=== PATIENT | female | born 1950 | race Caucasian/White ===

== ENCOUNTER 2016-08-23 08:04 | Day surgery (SDC) | payer BC ==
[~2016-08-23 08:04] MED LIST: ACETAMINOPHEN 325 MG TABLET PO PRN; ACETYLCHOLINE CHLORIDE 20 DROP KIT IO PRN; BUPIVACAINE HCL/PF 30 ML VIAL IJ PRN; CYCLOPENTOLATE HCL 20 DROP BTL LEFTEYE PRN; DEXTROSE 5%-0.5 NORMAL SALINE 1,000 ML IV PRN; EPINEPHrine 1 MG/ML AMPUL IO PRN; HYALURONATE SODIUM 0.4 ML DISP.SYRIN IO PRN; HYALURONATE SODIUM 0.85 ML DISP.SYRIN IO PRN; LIDOCAINE HCL/PF 200 MG/5 ML AMPUL TP PRN; LIDOCAINE HCL/PF 5 ML VIAL IO PRN; NORMAL SALINE 3 ML BOX IV PRN; TETRACAINE HCL 150 DROP BTL OP PRN
--- OUTSIDE RECORDS SUMMARY | 2016-08-23 08:17 | XMS REPORT | Summary of Care ---
:1950 Author Organization [facility] Address [facility] [place] [address] Care Team Providers Name Role Phone Francisco Frost Primary Care Physician Encounter Date(s): 07/12/16 - 07/12/16 [facility] [address] [place] [address] - [facility] Discharge Diagnosis: Sleep apnea Discharge Diagnosis: Hypertension Discharge Diagnosis: Cataract in diseases classified elsewhere Discharge Disposition: 01 Discharged to Home or Self Care Attending Physician: Francisco Frost MD Referring Physician: Francisco Frost MD Vital Signs Most recent to oldest [Reference Range]: 1 Peripheral Pulse Rate [60-100 bpm] 68 bpm (07/12/16 9:06 AM) Blood Pressure [90-130/60-90 mmHg] 120/70mmHg (07/12/16 9:06 AM) Mean Arterial Pressure, Cuff 87 mmHg (07/12/16 9:06 AM) Most recent to oldest [Reference Range]: 1 Height/Length Measured 149 cm (07/12/16 9:06 AM) Weight Dosing 65.4 kg (07/12/16 9:06 AM) Weight Measured 65.4 kg (07/12/16 9:06 AM) BSA Measured 1.6 m2 (07/12/16 9:06 AM) Body Mass Index Measured 29.46 kg/m2 (07/12/16 9:06 AM) Problem List Condition Effective Dates Status Health Status Informant GERD - Gastro-esophageal reflux Active disease(Confirmed) Hiatal hernia(Confirmed) Active Hypertension(Confirmed) Active Migraine(Confirmed) Active Osteoarthritis(Confirmed) Active Depression, major, recurrent, Active moderate(Confirmed) Stomach ulcer(Confirmed) Active Allergies, Adverse Reactions, Alerts Substance Reaction Severity Status Latex1 Family history of Mild Active 1patient reports siblings and daughter have latex allergy- Medications acyclovir 800 mg oral tablet 1 tab(s), Oral, 5x/Day, PRN as needed, # 150 tab(s), 0 Refill(s), Pharmacy: [facility] Start Date: 10/08/13 Stop Date: 01/03/14 Status: Completedacyclovir 800 mg oral tablet 1 tab(s), Oral, 5x/Day, PRN as needed, # 30 tab(s), 5 Refill(s), Start Date: 10/19 14:47:44 CDT, Pharmacy: [facility] 79 Start Date: 01/09/16 Status: Orderedacyclovir 800 mg oral tablet 1 tab(s), Oral, 5x/Day, PRN as needed, # 30 tab(s), 3 Refill(s), Start Date: 9:02:35 CDT, Pharmacy: [facility] Start Date: 09/26/14 Stop Date: 01/09/16 Status: Completedacyclovir 800 mg oral tablet 1 tab(s), Oral, 5x/Day, PRN as needed Start Date: 09/12/13 Stop Date: 10/08/13 Status: Discontinuedacyclovir 800 mg oral tablet 1 tab(s), Oral, 5x/Day, PRN as needed, # 30 tab(s), 3 Refill(s), Pharmacy: [facility] 79 Start Date: 01/03/14 Stop Date: 09/26/14 Status: Discontinuedamoxicillin 500 mg, Oral, ONETIME, 4 tabs before procedures, 0 Refill(s) Special Instructions: 4 tabs before procedures Start Date: 09/17/13 Stop Date: 09/19/13 Status: Discontinuedamoxicillin 500 mg oral capsule 2 cap(s), Oral, BID Start Date: 09/27/13 Stop Date: 10/08/13 Status: DiscontinuedCipro 500 mg oral tablet 1 tab(s), Oral, q12hr, # 20 tab(s), 0 Refill(s), other reason (Rx) Start Date: 09/19/13 Stop Date: 10/08/13 Status: DiscontinuedCipro 500 mg oral tablet 1 tab(s), Oral, q12hr, # 20 tab(s), 0 Refill(s), Pharmacy: [id number] Start Date: 09/19/13 Stop Date: 09/19/13 Status: Discontinuedclarithromycin 500 mg oral tablet 1 tab(s), Oral, BID Start Date: 09/27/13 Stop Date: 10/08/13 Status: DiscontinuedEchinacea 0 Refill(s), Start Date: 09/20/14 10:26:00 CDT Start Date: 09/20/14 Stop Date: 05/07/15 Status: DiscontinuedEffexor XR 75 mg oral capsule, extended release 1 cap(s), Oral, Daily, cancel Gabapentin, # 30 cap(s), 4 Refill(s), Start Date: 05/07/15 13:47:00 [employer], Pharmacy: [facility] Special Instructions: cancel Gabapentin Start Date: 05/07/15 Stop Date: 07/03/15 Status: Discontinuedgabapentin 300 mg oral capsule 1 cap(s), Oral, BID, # 60 cap(s), 4 Refill(s), Start Date: 05/07/15 13:45:00 [employer] , Pharmacy: [id number] Start Date: 05/07/15 Stop Date: 05/07/15 Status: DiscontinuedHYDROcodone-acetaminophen 5 mg-325 mg oral tablet 1-2 tab(s), Oral, q6hr, PRN for pain, [facility], # 30 tab(s), 0 Refill(s), Start Date: 04/24/14 13:45:19 [employer] Special Instructions: [employer] Start Date: 04/24/14 Stop Date: 07/25/14 Status: CompletedHYDROcodone-acetaminophen 5 mg-325 mg oral tablet 1-2 tab(s), Oral, q6hr, PRN for pain, [facility], # 30 tab(s), 0 Refill(s) Special Instructions: [employer] Start Date: 12/05/13 Stop Date: 01/08/14 Status: CompletedHYDROcodone-acetaminophen 5 mg-325 mg oral tablet 1-2 tab(s), Oral, q6hr, PRN for pain, # 30 tab(s), 0 Refill(s) Start Date: 10/08/13 Stop Date: 12/05/13 Status: DiscontinuedHYDROcodone-acetaminophen 5 mg-325 mg oral tablet 1-2 tab(s), Oral, q6hr, PRN for pain, [facility], # 30 tab(s), 0 Refill(s) Special Instructions: [facility] Start Date: 01/08/14 Stop Date: 03/04/14 Status: CompletedHYDROcodone-acetaminophen 5 mg-325 mg oral tablet 1-2 tab(s), Oral, q6hr, PRN for pain, # 30 tab(s), 0 Refill(s), Start Date: 03/20 14:53:13 CDT Start Date: 09/13/14 Stop Date: 10/04/14 Status: DiscontinuedHYDROcodone-acetaminophen 5 mg-325 mg oral tablet 1-2 tab(s), Oral, q6hr, PRN for pain Start Date: 09/12/13 Stop Date: 10/08/13 Status: DiscontinuedHYDROcodone-acetaminophen 5 mg-325 mg oral tablet 1-2 tab(s), Oral, q6hr, PRN for pain, [facility], # 30 tab(s), 0 Refill(s), Start Date: 04/24/14 11:19:10 [employer] Special Instructions: [facility] Start Date: 04/24/14 Stop Date: 04/24/14 Status: CompletedHYDROcodone-acetaminophen 5 mg-325 mg oral tablet 1-2 tab(s), Oral, q6hr, PRN for pain, [facility], # 30 tab(s), 0 Refill(s), Start Date: 03/04/14 16:27:55 CDT Special Instructions: [facility] Start Date: 03/04/14 Stop Date: 04/24/14 Status: CompletedHYDROcodone-acetaminophen 5 mg-325 mg oral tablet 1-2 tab(s), Oral, q6hr, PRN for pain, [facility], # 30 tab(s), 0 Refill(s), Start Date: 07/25/14 14:58:48 [employer] Special Instructions: [facility] Start Date: 07/25/14 Stop Date: 09/13/14 Status: Completedibuprofen 200 mg, Oral, q4hr interval, PRN pain moderate 4-7, 0 Refill(s) Start Date: 09/17/13 Stop Date: 09/19/13 Status: DiscontinuedNaprosyn 250 mg oral tablet 1 tab(s), Oral, BID, PRN for pain, with food, # 30 tab(s), 0 Refill(s), Start Date: 07/03/15 15:04:00 [employer], Pharmacy: [facility] 797 Special Instructions: with food Start Date: 07/03/15 Stop Date: 01/12/16 Status: Discontinuednaratriptan 2.5 mg oral tablet 1 tab(s), Oral, Daily, PRN as needed for migraine headache, may repeat dose once in 4 hours Special Instructions: may repeat dose once in 4 hours Start Date: 09/12/13 Stop Date: 09/17/13 Status: CompletedNeoprene knee sleeve Neoprene knee sleeve 1 EA, N/A, ONETIME, # 1 EA, 0 Refill(s), 07/03/15 15:04:00 [employer] Start Date: 07/03/15 Stop Date: 01/12/16 Status: DiscontinuedNorco 5 mg-325 mg oral tablet 1 tab(s), Oral, q6hr, PRN for pain, MUST LAST 30 DAYS, # 30 tab(s), 0 Refill(s) , Start Date: 02/12/16 13:05:28 CDT Special Instructions: MUST LAST 30 DAYS Start Date: 02/12/16 Stop Date: 03/18/16 Status: CompletedNorco 5 mg-325 mg oral tablet 1 tab(s), Oral, q6hr, PRN for pain, MUST LAST 30 DAYS, # 30 tab(s), 0 Refill(s) , Start Date: 06/18/15 15:16:11 [employer] Special Instructions: MUST LAST 30 DAYS Start Date: 06/18/15 Stop Date: 08/06/15 Status: CompletedNorco 5 mg-325 mg oral tablet 1 tab(s), Oral, q6hr, PRN for pain, MUST LAST 30 DAYS, # 30 tab(s), 0 Refill(s) , Start Date: 04/23/16 15:25:57 [employer] Special Instructions: MUST LAST 30 DAYS Start Date: 04/23/16 Stop Date: 06/16/16 Status: CompletedNorco 5 mg-325 mg oral tablet 1 tab(s), Oral, q6hr, PRN for pain, MUST LAST 30 DAYS, # 30 tab(s), 0 Refill(s) , Start Date: 12/26/15 11:58:01 CDT Special Instructions: MUST LAST 30 DAYS Start Date: 12/26/15 Stop Date: 02/12/16 Status: CompletedNorco 5 mg-325 mg oral tablet 1 tab(s), Oral, q6hr, PRN for pain, # 30 tab(s), 0 Refill(s), Start Date: 16:38:33 CDT, Pharmacy: [facility] Start Date: 02/03/15 Stop Date: 02/20/15 Status: CompletedNorco 5 mg-325 mg oral tablet 1 tab(s), Oral, q6hr, PRN for pain, Fill on or after 07/16/16 MUST LAST 30 DAYS , # 30 tab(s), 0 Refill(s), Start Date: 07/12/16 9:19:31 [employer] Special Instructions: Fill on or after 07/16/16 MUST LAST 30 DAYS Start Date: 07/12/16 Status: OrderedNorco 5 mg-325 mg oral tablet 1 tab(s), Oral, q6hr, PRN for pain, MUST LAST 30 DAYS, # 30 tab(s), 0 Refill(s) , Start Date: 08/06/15 11:49:47 [employer] Special Instructions: MUST LAST 30 DAYS Start Date: 08/06/15 Stop Date: 10/24/15 Status: CompletedNorco 5 mg-325 mg oral tablet 1 tab(s), Oral, q6hr, PRN for pain, MUST LAST 30 DAYS, # 30 tab(s), 0 Refill(s) , Start Date: 08/06/15 11:48:13 [employer] Special Instructions: MUST LAST 30 DAYS Start Date: 08/06/15 Stop Date: 08/06/15 Status: CompletedNorco 5 mg-325 mg oral tablet 1 tab(s), Oral, q6hr, PRN for pain, MUST LAST 30 DAYS, # 30 tab(s), 0 Refill(s) , Start Date: 02/20/15 15:33:40 CDT Special Instructions: MUST LAST 30 DAYS Start Date: 02/20/15 Stop Date: 04/28/15 Status: CompletedNorco 5 mg-325 mg oral tablet 1 tab(s), Oral, q6hr, PRN for pain, MUST LAST 30 DAYS, # 30 tab(s), 0 Refill(s) , Start Date: 03/18/16 14:39:23 CDT Special Instructions: MUST LAST 30 DAYS Start Date: 03/18/16 Stop Date: 04/23/16 Status: CompletedNorco 5 mg-325 mg oral tablet 1 tab(s), Oral, q6hr, PRN for pain, # 40 tab(s), 0 Refill(s), Start Date: 12:07:00 CDT, Pharmacy: [facility] Start Date: 01/03/15 Stop Date: 02/03/15 Status: CompletedNorco 5 mg-325 mg oral tablet 1 tab(s), Oral, q6hr, PRN for pain, MUST LAST 30 DAYS, # 30 tab(s), 0 Refill(s) , Start Date: 04/28/15 11:49:52 [employer] Special Instructions: MUST LAST 30 DAYS Start Date: 04/28/15 Stop Date: 05/07/15 Status: DiscontinuedNorco 5 mg-325 mg oral tablet 1 tab(s), Oral, q6hr, PRN for pain, MUST LAST 30 DAYS, # 30 tab(s), 0 Refill(s) , Start Date: 10/24/15 15:20:47 CDT Special Instructions: MUST LAST 30 DAYS Start Date: 10/24/15 Stop Date: 12/26/15 Status: CompletedNorco 5 mg-325 mg oral tablet 1 tab(s), Oral, q6hr, PRN for pain, MUST LAST 30 DAYS, # 30 tab(s), 0 Refill(s) , Start Date: 06/16/16 13:03:40 [employer] Special Instructions: MUST LAST 30 DAYS Start Date: 06/16/16 Stop Date: 07/12/16 Status: CompletedOxyCONTIN 10 mg oral tablet, extended release 1 tab(s), Oral, q12hr, # 14 tab(s), 0 Refill(s), Start Date: 10/04/14 6:54:00 CDT Start Date: 10/04/14 Stop Date: 10/22/14 Status: Completedpantoprazole 40 mg oral delayed release tablet 1 tab(s), Oral, BID, # 60 tab(s), 3 Refill(s), Start Date: 05/07/15 13:41:12 [employer] , Pharmacy: [place] [id number] Start Date: 05/07/15 Stop Date: 08/18/15 Status: Completedpantoprazole 40 mg oral delayed release tablet 1 tab(s), Oral, BID, # 60 tab(s), 6 Refill(s), Start Date: 07/26/14 14:02:41 [employer] , other reason (Rx) Start Date: 07/26/14 Stop Date: 02/17/15 Status: Completedpantoprazole 40 mg oral delayed release tablet 1 tab(s), Oral, BID, # 60 tab(s), 2 Refill(s), Start Date: 02/17/15 16:48:35 CDT , Pharmacy: [place] [id number] Start Date: 02/17/15 Stop Date: 05/07/15 Status: Discontinuedpantoprazole 40 mg oral delayed release tablet 1 tab(s), Oral, BID, # 60 tab(s), 2 Refill(s), Pharmacy: [place] [id number] Start Date: 01/22/14 Stop Date: 07/26/14 Status: Discontinuedpantoprazole 40 mg oral delayed release tablet 1 tab(s), Oral, BID, # 60 tab(s), 5 Refill(s), Start Date: 08/18/15 14:42:14 CDT , Pharmacy: [place] [id number] Start Date: 08/18/15 Stop Date: 01/12/16 Status: Discontinuedpantoprazole 40 mg oral delayed release tablet 1 tab(s), Oral, BID, # 28 tab(s), 0 Refill(s), Start Date: 06/24/14 12:20:16 [employer] , Pharmacy: [place] [id number] Start Date: 06/24/14 Stop Date: 07/26/14 Status: Completedpantoprazole 40 mg oral delayed release tablet 1 tab(s), Oral, BID, # 60 tab(s), 0 Refill(s), Start Date: 05/24/14 10:38:00 [employer] , Pharmacy: [facility] Start Date: 05/24/14 Stop Date: 06/24/14 Status: Completedpantoprazole 40 mg oral enteric coated tablet 1 tab(s), Oral, BID, # 30 tab(s), 6 Refill(s), Pharmacy: [facility] Start Date: 09/19/13 Stop Date: 12/22/13 Status: Completedpantoprazole 40 mg oral enteric coated tablet 1 tab(s), Oral, BID, # 14 tab(s), 0 Refill(s), Pharmacy: [id number] Start Date: 12/22/13 Stop Date: 07/26/14 Status: Discontinuedpantoprazole 40 mg oral enteric coated tablet 1 tab(s), Oral, Daily Start Date: 09/12/13 Stop Date: 09/19/13 Status: Discontinuedpantoprazole 40 mg oral granule, enteric coated 1 tab, Oral, BID, # 60 tab(s), 6 Refill(s), Start Date: 05/07/14 15:52:00 [employer], Pharmacy: [facility] Start Date: 05/07/14 Stop Date: 07/26/14 Status: DiscontinuedPercocet 5/325 oral tablet 1 tab(s), Oral, q4hr, # 40 tab(s), 0 Refill(s), Start Date: 11/07/14 10:57:57 CDT, other reason (Rx) Start Date: 11/07/14 Stop Date: 11/15/14 Status: CompletedPercocet 5/325 oral tablet 2 tab(s), Oral, q4hr, PRN pain moderate 4-7, NTE 8 tabs/day, # 60 tab(s), 0 Refill(s), Start Date: 10/04/14 6:54:00 CDT Special Instructions: NTE 8 tabs/day Start Date: 10/04/14 Stop Date: 01/03/15 Status: CompletedPercocet 5/325 oral tablet See Instructions, 1-2 tabs every 4-6 hours prn pain *pt instructed to pick rx in the office., # 60 tab(s), 0 Refill(s), Start Date: 12/11/14 14:12:00 CDT, other reason (Rx) Special Instructions: 1-2 tabs every 4-6 hours prn pain *pt instructed to pick rx in the office. Start Date: 12/11/14 Stop Date: 01/03/15 Status: CompletedPercocet 5/325 oral tablet See Instructions, 1-2 tabs every 4-6 hours prn pain *rx given in the office. , # 40 tab(s), 0 Refill(s), Start Date: 11/15/14 13:25:00 CDT Special Instructions: 1-2 tabs every 4-6 hours prn pain *rx given in the office. Start Date: 11/15/14 Stop Date: 05/07/15 Status: CompletedPercocet 5/325 oral tablet 1 tab(s), Oral, q4hr, # 40 tab(s), 0 Refill(s), Start Date: 10/22/14 10:48:00 CDT, Pharmacy: [facility] Start Date: 10/22/14 Stop Date: 11/07/14 Status: CompletedPriLOSEC 40 mg oral delayed release capsule 1 cap(s), Oral, DailyAC, before a meal, 0 Refill(s) Special Instructions: before a meal Start Date: 09/13/13 Stop Date: 09/17/13 Status: CompletedProAir HFA 90 mcg/inh inhalation aerosol with adapter 2 puff(s), Inhale, QID, PRN for wheezing Start Date: 09/12/13 Stop Date: 09/17/13 Status: CompletedProAir HFA 90 mcg/inh inhalation aerosol with adapter 2 puff(s), Inhale, QID, PRN for wheezing, # 1 EA, 0 Refill(s), Pharmacy: [facility] Start Date: 09/19/13 Stop Date: 07/12/16 Status: DiscontinuedProAir HFA 90 mcg/inh inhalation aerosol with adapter 2 puff(s), Inhale, QID, PRN for wheezing, 0 Refill(s) Start Date: 09/13/13 Stop Date: 09/19/13 Status: DiscontinuedtraMADol 50 mg oral tablet 1 tab(s), Oral, q6hr interval, PRN for pain Start Date: 09/12/13 Stop Date: 10/08/13 Status: DiscontinuedtraMADol 50 mg oral tablet 1 tab(s), Oral, q6hr interval, PRN for pain, # 120 tab(s), 0 Refill(s), Pharmacy : [facility] 79 Start Date: 10/08/13 Stop Date: 10/01/14 Status: Completedverapamil 40 mg oral tablet 1 tab(s), Oral, BID Start Date: 09/12/13 Stop Date: 10/27/13 Status: Discontinuedverapamil 40 mg oral tablet 1 tab(s), Oral, BID, # 60 tab(s), 6 Refill(s), Start Date: 05/07/15 13:40:00 [employer] , Pharmacy: [place] [id number] Start Date: 05/07/15 Stop Date: 08/18/15 Status: Completedverapamil 40 mg oral tablet 1 tab(s), Oral, BID, # 60 tab(s), 6 Refill(s), Start Date: 07/12/16 9:18:43 [employer] , Pharmacy: [place] [id number] Start Date: 07/12/16 Status: Orderedverapamil 40 mg oral tablet 1 tab(s), Oral, BID, due for appt, # 180 tab(s), 3 Refill(s), Pharmacy: [place] [id number] Special Instructions: due for appt Start Date: 12/05/13 Stop Date: 12/22/13 Status: Completedverapamil 40 mg oral tablet 1 tab(s), Oral, BID, due for appt, # 14 tab(s), 0 Refill(s), Pharmacy: [facility] Special Instructions: due for appt Start Date: 12/22/13 Stop Date: 01/03/14 Status: Completedverapamil 40 mg oral tablet 1 tab(s), Oral, BID, # 60 tab(s), 5 Refill(s), Start Date: 08/18/15 14:42:24 CDT , Pharmacy: [place] [id number] Start Date: 08/18/15 Stop Date: 01/12/16 Status: Discontinuedverapamil 40 mg oral tablet 1 tab(s), Oral, BID, due for appt, # 14 tab(s), 0 Refill(s) Special Instructions: due for appt Start Date: 12/22/13 Stop Date: 12/22/13 Status: Completedverapamil 40 mg oral tablet 1 tab(s), Oral, BID, # 60 tab(s), 5 Refill(s), Start Date: 01/30/14 14:37:43 CDT , Pharmacy: [place] [id number] Start Date: 01/30/14 Stop Date: 08/08/14 Status: Completedverapamil 40 mg oral tablet 1 tab(s), Oral, BID, # 60 tab(s), 0 Refill(s), Pharmacy: [place] [id number] Start Date: 10/27/13 Stop Date: 11/26/13 Status: Completedverapamil 40 mg oral tablet 1 tab(s), Oral, BID, # 60 tab(s), 5 Refill(s), Pharmacy: [place] [id number] Start Date: 01/03/14 Stop Date: 01/30/14 Status: Completedverapamil 40 mg oral tablet 1 tab(s), Oral, BID, due for appt, # 60 tab(s), 5 Refill(s), Pharmacy: [place] [id number] Special Instructions: due for appt Start Date: 01/03/14 Stop Date: 01/03/14 Status: Completedverapamil 40 mg oral tablet 1 tab(s), Oral, BID, # 60 tab(s), 5 Refill(s), Start Date: 08/08/14 14:37:24 [employer] , Pharmacy: [place] [id number] Start Date: 08/08/14 Stop Date: 10/02/14 Status: Discontinuedverapamil 40 mg oral tablet 1 tab(s), Oral, BID, # 60 tab(s), 5 Refill(s), Start Date: 08/18/15 13:49:37 CDT , Pharmacy: [place] [id number] Start Date: 08/18/15 Stop Date: 08/18/15 Status: Completedverapamil 40 mg oral tablet 1 tab(s), Oral, BID, # 60 tab(s), 5 Refill(s), Start Date: 01/12/16 9:19:47 CDT , Pharmacy: [place] [id number] Start Date: 01/12/16 Stop Date: 07/12/16 Status: Discontinuedverapamil 40 mg oral tablet 1 tab(s), Oral, BID, due for appt, # 60 tab(s), 0 Refill(s), Pharmacy: [facility] Special Instructions: due for appt Start Date: 11/26/13 Stop Date: 12/05/13 Status: DiscontinuedVitamin C 0 Refill(s), Start Date: 09/20/14 10:26:00 CDT Start Date: 09/20/14 Status: OrderedVitamin D3 200 intl units oral tablet 0 Refill(s), Start Date: 09/20/14 10:26:00 CDT Start Date: 09/20/14 Status: OrderedZofran 4 mg oral tablet 1 tab(s), Oral, q6hr, PRN nausea, # 30 tab(s), 0 Refill(s), Start Date: 6:57:00 CDT Start Date: 10/04/14 Stop Date: 07/03/15 Status: DiscontinuedZofran 4 mg oral tablet 1 tab(s), Oral, TID, PRN nausea/vomiting, # 12 tab(s), 0 Refill(s), Start Date: 07/03/15 15:04:00 [employer], Pharmacy: [facility] Start Date: 07/03/15 Stop Date: 01/12/16 Status: Completed Results Patient Viewable Results Most recent to oldest [Reference Range]: 1 Sodium Lvl [136-145 mmol/L] 140 mmol/L (07/12/16 9:25 AM) Potassium Lvl [3.5-5.1 mmol/L] 4.4 mmol/L (07/12/16 9:25 AM) Chloride Lvl [98-107 mmol/L] 103 mmol/L (07/12/16 9:25 AM) Bicarbonate Lvl [21-32 mmol/L] 29 mmol/L (07/12/16 9:25 AM) Anion Gap [12-19] 12 (07/12/16 9:25 AM) Glucose Lvl [74-106 mg/dL] 83 mg/dL (07/12/16 9:25 AM) BUN [7-18 mg/dL] 12 mg/dL (07/12/16 9:25 AM) Creatinine Lvl [0.55-1.02 mg/dL] 0.68 mg/dL (07/12/16 9:25 AM) BUN/Creat Ratio 18 *NA* (07/12/16 9:25 AM) eGFR AA [>=60] >60 (07/12/16 9:25 AM) eGFR SUSANA [>=60] >60 (07/12/16 9:25 AM) Calcium Lvl [8.5-10.1 mg/dL] 9.2 mg/dL (07/12/16 9:25 AM) Total Protein [6.4-8.2 g/dL] 6.8 g/dL (07/12/16 9:25 AM) Albumin Lvl [3.4-5.0 g/dL] 3.7 g/dL (07/12/16 9:25 AM) Globulin 3 g/dL *NA* (07/12/16 9:25 AM) A/G Ratio [1.0-2.0] 1.2 (07/12/16 9:25 AM) Bilirubin Total [0.2-1.0 mg/dL] 0.3 mg/dL (07/12/16 9:25 AM) Alkaline Phosphatase [46-116 unit/L] 59 unit/L (07/12/16 9:25 AM) AST [15-37 unit/L] 21 unit/L (07/12/16 9:25 AM) ALT [14-59 unit/L] 24 unit/L (07/12/16 9:25 AM) UA Color Yellow *NA* (07/12/16 9:25 AM) Urine Clarity Clear *NA* (07/12/16 9:25 AM) Specific Sharon [1.001-1.020] <=1.005 *NA* (07/12/16 9:25 AM) Urine pH [5.0-7.0] 6.0 (07/12/16 9:25 AM) Ketones [Negative] Negative (07/12/16 9:25 AM) Bilirubin [Negative] Negative (07/12/16 9:25 AM) Urine Protein [Negative] Negative (07/12/16 9:25 AM) Glucose [Negative] Negative (07/12/16 9:25 AM) Urine HGB [Negative] Negative (07/12/16 9:25 AM) Urobilinogen [0.2-1.0] 0.2 (07/12/16 9:25 AM) Nitrite [Negative] Negative (07/12/16 9:25 AM) Leuk Esterase [Negative] Negative (07/12/16 9:25 AM) Immunizations Vaccine Date Refusal Reason tetanus/diphtheria/pertussis, acel(Tdap) 06/06/10 tetanus/diphtheria/pertussis, acel(Tdap) 10/01/09 Procedures Procedure Date Related Diagnosis Body Site Arthroplasty Shoulder Total (Left)1 10/01/14 Esophageal Dilatation2 09/19/13 Pyloroplasty 01/31/13 Repair of paraesophageal diaphragmatic hernia3 01/31/13 Esophagogastroduodenoscopy 01/30/13 Esophagogastroduodenoscopy 12/22/12 Bilateral tubal ligation 1975 section 1974 section 1973 Repair of paraesophageal diaphragmatic hernia 1auto-populated from documented surgical [id number] from documented surgical [id number] Social History No data available for this section Assessment and Plan No data available for this section
--- OUTSIDE RECORDS SUMMARY | 2016-08-23 08:18 | XMS REPORT | Summary of Care ---
:1950 Author Organization [facility] Address [address] [place] [address]- Care Team Providers Name Role Phone Margot Francisco Primary Care Physician Encounter Date(s): 07/15/16 - 07/15/16 [facility] [address] [place] [address]- [facility] Discharge Disposition: 01 Discharged to Home or Self Care Attending Physician: Charli Andrade MD Admitting Physician: Charli Andrade MD Vital Signs Most recent to oldest [Reference 1 2 3 Range]: Temperature Temporal Artery [36-38 36.5 DegC 36.0 DegC DegC] (07/15/16 9:13 AM) (07/15/16 8:52 AM) Temperature Temporal Artery 36.0 DegC [36.0-38.0 DegC] (07/15/16 7:26 AM) Heart Rate Monitored [60-100 bpm] 58 bpm 63 bpm 79 bpm *LOW* (07/15/16 8:52 AM) (07/15/16 7:26 AM) (07/15/16 9:13 AM) Respiratory Rate [12-20 br/min] 16 br/min 16 br/min 18 br/min (07/15/16 9:13 AM) (07/15/16 8:52 AM) (07/15/16 7:26 AM) SpO2 100 % 99 % 100 % (07/15/16 9:13 AM) (07/15/16 8:52 AM) (07/15/16 7:26 AM) SpO2 Location Left hand (07/15/16 9:13 AM) Blood Pressure [90-130/60-90 mmHg] 138/65mmHg 94/56mmHg 118/59mmHg *HI* (07/15/16 8:52 AM) (07/15/16 7:26 AM) (07/15/16 9:13 AM) Most recent to oldest [Reference Range]: 1 2 3 Height/Length Measured 149 cm (07/15/16 7:26 AM) Height/Length Estimated 149.86 cm 149.86 cm (07/15/16 7:26 AM) (07/13/16 10:41 AM) Weight Estimated 64.5 kg 63.5 kg (07/15/16 7:26 AM) (07/13/16 10:41 AM) Weight Dosing 64.5 kg (07/15/16 7:26 AM) Weight Measured 64.5 kg (07/15/16 7:26 AM) BSA Measured 1.59 m2 (07/15/16 7:26 AM) BSA Estimated 1.64 m2 (07/15/16 7:26 AM) Body Mass Index Measured 29.05 kg/m2 (07/15/16 7:26 AM) Body Mass Index Estimated 28.72 kg/m2 (07/15/16 7:26 AM) Problem List Condition Effective Dates Status [...] needed, # 150 tab(s), 0 Refill(s), Pharmacy: [facility] Start Date: 10/08/13 Stop Date: 01/03/14 Status: Completedacyclovir 800 mg oral tablet 1 tab(s), Oral, 5x/Day, PRN as needed, # 30 tab(s), 5 Refill(s), Start Date: 10/19 14:47:44 CDT, Pharmacy: [facility] Start Date: 01/09/16 Status: Orderedacyclovir 800 mg oral tablet 1 tab(s), Oral, 5x/Day, PRN as needed, # 30 tab(s), 3 Refill(s), Start Date: 9:02:35 CDT, Pharmacy: [facility] Start Date: 09/26/14 Stop Date: 01/09/16 Status: Completedacyclovir 800 mg oral tablet 1 tab(s), Oral, 5x/Day, PRN as needed Start Date: 09/12/13 Stop Date: 10/08/13 Status: Discontinuedacyclovir 800 mg oral tablet 1 tab(s), Oral, 5x/Day, PRN as needed, # 30 tab(s), 3 Refill(s), Pharmacy: [facility] Start Date: 01/03/14 Stop Date: 09/26/14 Status: Discontinuedamoxicillin 500 mg, Oral, ONETIME, 4 tabs before procedures, 0 Refill(s) Special Instructions: 4 tabs before procedures Start Date: 09/17/13 Stop Date: 09/19/13 Status: Discontinuedamoxicillin 500 mg oral capsule 2 cap(s), Oral, BID Start Date: 09/27/13 Stop Date: 10/08/13 Status: Discontinuedaspirin 81 mg, Oral, Daily, 0 Refill(s), Start Date: 07/13/16 10:44:00 MANAGEMENT SCIENTIST Start Date: 07/13/16 Status: OrderedCipro 500 mg oral tablet 1 tab(s), Oral, q12hr, # 20 tab(s), 0 Refill(s), other reason (Rx) Start Date: 09/19/13 Stop Date: 10/08/13 Status: DiscontinuedCipro 500 mg oral tablet 1 tab(s), Oral, q12hr, # 20 tab(s), 0 Refill(s), Pharmacy: [facility] Start Date: 09/19/13 Stop [...] cap(s), 4 Refill(s), Start Date: 05/07/15 13:47:00 MANAGEMENT SCIENTIST, Pharmacy: [facility] Special Instructions: cancel Gabapentin Start Date: 05/07/15 Stop Date: 07/03/15 Status: Discontinuedgabapentin 300 mg oral capsule 1 cap(s), Oral, BID, # 60 cap(s), 4 Refill(s), Start Date: 05/07/15 13:45:00 MANAGEMENT SCIENTIST , Pharmacy: [id number] Start Date: 05/07/15 Stop Date: 05/07/15 Status: DiscontinuedHYDROcodone-acetaminophen 5 mg-325 mg oral tablet 1-2 tab(s), Oral, q6hr, PRN for pain, [facility], # 30 tab(s), 0 Refill(s), Start Date: 04/24/14 13:45:19 MANAGEMENT SCIENTIST Special Instructions: Jason Start Date: 04/24/14 Stop Date: 07/25/14 Status: CompletedHYDROcodone-acetaminophen 5 mg-325 mg oral tablet 1-2 tab(s), Oral, q6hr, PRN for pain, [facility], # 30 tab(s), 0 Refill(s) Special Instructions: ArpanPheedo Start Date: 12/05/13 Stop Date: 01/08/14 Status: CompletedHYDROcodone-acetaminophen 5 mg-325 mg oral tablet 1-2 tab(s), Oral, q6hr, PRN for pain, # 30 tab(s), 0 Refill(s) Start Date: 10/08/13 Stop Date: 12/05/13 Status: DiscontinuedHYDROcodone-acetaminophen 5 mg-325 mg oral tablet 1-2 tab(s), Oral, q6hr, PRN for pain, [facility], # 30 tab(s), 0 Refill(s) Special Instructions: PaulToldo Start Date: 01/08/14 Stop Date: 03/04/14 Status: [...] tab(s), 0 Refill(s), Start Date: 04/24/14 11:19:10 MANAGEMENT SCIENTIST Special Instructions: [facility] Start Date: 04/24/14 Stop Date: 04/24/14 Status: CompletedHYDROcodone-acetaminophen 5 mg-325 mg oral tablet 1-2 tab(s), Oral, q6hr, PRN for pain, [facility], # 30 tab(s), 0 Refill(s), Start Date: 03/04/14 16:27:55 CDT Special Instructions: Paul-shawn Start Date: 03/04/14 Stop Date: 04/24/14 Status: CompletedHYDROcodone-acetaminophen 5 mg-325 mg oral tablet 1-2 tab(s), Oral, q6hr, PRN for pain, [facility], # 30 tab(s), 0 Refill(s), Start Date: 07/25/14 14:58:48 MANAGEMENT SCIENTIST Special Instructions: Paul-shawn Start Date: 07/25/14 Stop Date: 09/13/14 Status: Completedibuprofen 200 mg, Oral, q4hr interval, PRN pain moderate 4-7, 0 Refill(s) Start Date: 09/17/13 Stop Date: 09/19/13 Status: DiscontinuedNaprosyn 250 mg oral tablet 1 tab(s), Oral, BID, PRN for pain, with food, # 30 tab(s), 0 Refill(s), Start Date: 07/03/15 15:04:00 MANAGEMENT SCIENTIST, Pharmacy: [facility] Special Instructions: with food Start Date: [...] # 1 EA, 0 Refill(s), 07/03/15 15:04:00 MANAGEMENT SCIENTIST Start Date: 07/03/15 Stop Date: 01/12/16 Status: [...] 0 Refill(s) , Start Date: 06/18/15 15:16:11 MANAGEMENT SCIENTIST Special Instructions: MUST LAST 30 DAYS Start Date: 06/18/15 Stop Date: 08/06/15 Status: CompletedNorco 5 mg-325 mg oral tablet 1 tab(s), Oral, q6hr, PRN for pain, MUST LAST 30 DAYS, # 30 tab(s), 0 Refill(s) , Start Date: 04/23/16 15:25:57 MANAGEMENT SCIENTIST Special Instructions: MUST LAST 30 DAYS Start [...] 0 Refill(s), Start Date: 16:38:33 CDT, Pharmacy: [facility] Start Date: 02/03/15 Stop Date: 02/20/15 Status: CompletedNorco 5 mg-325 mg oral tablet 1 tab(s), Oral, q6hr, PRN for pain, Fill on or after 07/16/16 MUST LAST 30 DAYS , # 30 tab(s), 0 Refill(s), Start Date: 07/12/16 9:19:31 MANAGEMENT SCIENTIST Special Instructions: Fill on or after 07/16/16 MUST LAST 30 DAYS Start Date: 07/12/16 Status: OrderedNorco 5 mg-325 mg oral tablet 1 tab(s), Oral, q6hr, PRN for pain, MUST LAST 30 DAYS, # 30 tab(s), 0 Refill(s) , Start Date: 08/06/15 11:49:47 MANAGEMENT SCIENTIST Special Instructions: MUST LAST 30 DAYS Start Date: 08/06/15 Stop Date: 10/24/15 Status: CompletedNorco 5 mg-325 mg oral tablet 1 tab(s), Oral, q6hr, PRN for pain, MUST LAST 30 DAYS, # 30 tab(s), 0 Refill(s) , Start Date: 08/06/15 11:48:13 MANAGEMENT SCIENTIST Special Instructions: MUST LAST 30 DAYS Start [...] 0 Refill(s), Start Date: 12:07:00 CDT, Pharmacy: [facility] Start Date: 01/03/15 Stop Date: 02/03/15 Status: CompletedNorco 5 mg-325 mg oral tablet 1 tab(s), Oral, q6hr, PRN for pain, MUST LAST 30 DAYS, # 30 tab(s), 0 Refill(s) , Start Date: 04/28/15 11:49:52 MANAGEMENT SCIENTIST Special Instructions: MUST LAST 30 DAYS Start [...] 0 Refill(s) , Start Date: 06/16/16 13:03:40 MANAGEMENT SCIENTIST Special Instructions: MUST LAST 30 DAYS Start Date: 06/16/16 Stop Date: 07/12/16 Status: CompletedOxyCONTIN 10 mg oral tablet, extended release 1 tab(s), Oral, q12hr, # 14 tab(s), 0 Refill(s), Start Date: 10/04/14 6:54:00 CDT Start Date: 10/04/14 Stop Date: 10/22/14 Status: Completedpantoprazole 40 mg oral delayed release tablet 1 tab(s), Oral, BID, # 60 tab(s), 3 Refill(s), Start Date: 05/07/15 13:41:12 MANAGEMENT SCIENTIST , Pharmacy: [facility] Start Date: 05/07/15 Stop Date: 08/18/15 Status: Completedpantoprazole 40 mg oral delayed release tablet 1 tab(s), Oral, BID, # 60 tab(s), 6 Refill(s), Start Date: 07/26/14 14:02:41 MANAGEMENT SCIENTIST , other reason (Rx) Start Date: 07/26/14 Stop Date: 02/17/15 Status: Completedpantoprazole 40 mg oral delayed release tablet 1 tab(s), Oral, BID, # 60 tab(s), 2 Refill(s), Start Date: 02/17/15 16:48:35 CDT , Pharmacy: [place] [facility] [id number] Start Date: 02/17/15 Stop Date: 05/07/15 Status: Discontinuedpantoprazole 40 mg oral delayed release tablet 1 tab(s), Oral, BID, # 60 tab(s), 2 Refill(s), Pharmacy: [place] [id number] Start Date: 01/22/14 Stop Date: 07/26/14 Status: Discontinuedpantoprazole 40 mg oral delayed release tablet 1 tab(s), Oral, BID, # 60 tab(s), 5 Refill(s), Start Date: 08/18/15 14:42:14 CDT , Pharmacy: [place] [id number] Start Date: 08/18/15 Stop Date: 01/12/16 Status: Discontinuedpantoprazole 40 mg oral delayed release tablet 1 tab(s), Oral, BID, # 28 tab(s), 0 Refill(s), Start Date: 06/24/14 12:20:16 MANAGEMENT SCIENTIST , Pharmacy: [place] [id number] Start Date: 06/24/14 Stop Date: 07/26/14 Status: Completedpantoprazole 40 mg oral delayed release tablet 1 tab(s), Oral, BID, # 60 tab(s), 0 Refill(s), Start Date: 05/24/14 10:38:00 MANAGEMENT SCIENTIST , Pharmacy: [place] [id number] Start Date: 05/24/14 Stop Date: 06/24/14 Status: Completedpantoprazole 40 mg oral enteric coated tablet 1 tab(s), Oral, BID, # 30 tab(s), 6 Refill(s), Pharmacy: [place] [id number] Start Date: 09/19/13 Stop Date: 12/22/13 Status: Completedpantoprazole 40 mg oral enteric coated tablet 1 tab(s), Oral, BID, # 14 tab(s), 0 Refill(s), Pharmacy: [id number] Start Date: 12/22/13 Stop Date: 07/26/14 Status: Discontinuedpantoprazole 40 mg oral enteric coated tablet 1 tab(s), Oral, Daily Start Date: 09/12/13 Stop Date: 09/19/13 Status: Discontinuedpantoprazole 40 mg oral granule, enteric coated 1 tab, Oral, BID, # 60 tab(s), 6 Refill(s), Start Date: 05/07/14 15:52:00 MANAGEMENT SCIENTIST, Pharmacy: [facility] Start Date: 05/07/14 Stop [...] Refill(s), Start Date: 10/22/14 10:48:00 CDT, Pharmacy: [facility] Start Date: 10/22/14 Stop Date: [...] wheezing, # 1 EA, 0 Refill(s), Pharmacy: [facility] Start Date: 09/19/13 Stop Date: 07/12/16 Status: DiscontinuedProAir HFA 90 mcg/inh inhalation aerosol with adapter 2 puff(s), Inhale, QID, PRN for wheezing, 0 Refill(s) Start Date: 09/13/13 Stop Date: 09/19/13 Status: DiscontinuedProbiotic Formula 1 cap(s), Oral, Daily, 0 Refill(s), Start Date: 07/13/16 10:46:00 MANAGEMENT SCIENTIST Start Date: 07/13/16 Status: OrderedtraMADol 50 mg oral tablet 1 tab(s), Oral, q6hr interval, PRN for pain Start Date: 09/12/13 Stop Date: 10/08/13 Status: DiscontinuedtraMADol 50 mg oral tablet 1 tab(s), Oral, q6hr interval, PRN for pain, # 120 tab(s), 0 Refill(s), Pharmacy : [facility] Start Date: 10/08/13 Stop Date: 10/01/14 Status: Completedverapamil 40 mg oral tablet 1 tab(s), Oral, BID Start Date: 09/12/13 Stop Date: 10/27/13 Status: Discontinuedverapamil 40 mg oral tablet 1 tab(s), Oral, BID, # 60 tab(s), 6 Refill(s), Start Date: 05/07/15 13:40:00 MANAGEMENT SCIENTIST , Pharmacy: [facility] Start Date: 05/07/15 Stop Date: 08/18/15 Status: Completedverapamil 40 mg oral tablet 1 tab(s), Oral, BID, # 60 tab(s), 6 Refill(s), Start Date: 07/12/16 9:18:43 MANAGEMENT SCIENTIST , Pharmacy: [place] [id number] Start Date: 07/12/16 Status: Orderedverapamil 40 mg oral tablet 1 tab(s), Oral, BID, due for appt, # 180 tab(s), 3 Refill(s), Pharmacy: [place] [id number] Special Instructions: due for appt Start Date: 12/05/13 Stop Date: 12/22/13 Status: Completedverapamil 40 mg oral tablet 1 tab(s), Oral, BID, due for appt, # 14 tab(s), 0 Refill(s), Pharmacy: [place] [id number] Special Instructions: due for appt Start Date: 12/22/13 Stop Date: 01/03/14 Status: Completedverapamil 40 mg oral tablet 1 tab(s), Oral, BID, # 60 tab(s), 5 Refill(s), Start Date: 08/18/15 14:42:24 CDT , Pharmacy: [place] [id number] Start Date: 08/18/15 Stop Date: 01/12/16 Status: Discontinuedverapamil 40 mg oral tablet 1 tab(s), Oral, BID, due for appt, # 14 tab(s), 0 Refill(s) Special Instructions: due for appt Start Date: 12/22/13 Stop Date: 12/22/13 Status: Completedverapamil 40 mg oral tablet 1 tab(s), Oral, BID, # 60 tab(s), 5 Refill(s), Start Date: 01/30/14 14:37:43 CDT , Pharmacy: [place] [id number] Start Date: 01/30/14 Stop Date: 08/08/14 Status: Completedverapamil 40 mg oral tablet 1 tab(s), Oral, BID, # 60 tab(s), 0 Refill(s), Pharmacy: [place] [id number] Start Date: 10/27/13 Stop Date: 11/26/13 Status: Completedverapamil 40 mg oral tablet 1 tab(s), Oral, BID, # 60 tab(s), 5 Refill(s), Pharmacy: [place] [id number] Start Date: 01/03/14 Stop Date: 01/30/14 Status: Completedverapamil 40 mg oral tablet 1 tab(s), Oral, BID, due for appt, # 60 tab(s), 5 Refill(s), Pharmacy: [place] [id number] Special Instructions: due for appt Start Date: 01/03/14 Stop Date: 01/03/14 Status: Completedverapamil 40 mg oral tablet 1 tab(s), Oral, BID, # 60 tab(s), 5 Refill(s), Start Date: 08/08/14 14:37:24 MANAGEMENT SCIENTIST , Pharmacy: [place] [id number] Start Date: 08/08/14 Stop Date: 10/02/14 Status: Discontinuedverapamil 40 mg oral tablet 1 tab(s), Oral, BID, # 60 tab(s), 5 Refill(s), Start Date: 08/18/15 13:49:37 CDT , Pharmacy: [place] [id number] Start Date: 08/18/15 Stop Date: 08/18/15 Status: Completedverapamil 40 mg oral tablet 1 tab(s), Oral, BID, # 60 tab(s), 5 Refill(s), Start Date: 01/12/16 9:19:47 CDT , Pharmacy: [place] [id number] Start Date: 01/12/16 Stop Date: 07/12/16 Status: Discontinuedverapamil 40 mg oral tablet 1 tab(s), Oral, BID, due for appt, # 60 tab(s), 0 Refill(s), Pharmacy: [place] [id number] Special Instructions: due for appt Start Date: 11/26/13 Stop Date: 12/05/13 Status: DiscontinuedVitamin C 0 Refill(s), Start Date: 09/20/14 10:26:00 CDT Start Date: 09/20/14 Stop Date: 07/13/16 Status: DiscontinuedVitamin D3 200 intl units oral tablet 0 Refill(s), Start Date: 09/20/14 10:26:00 CDT Start Date: 09/20/14 Stop Date: 07/13/16 Status: DiscontinuedZofran 4 mg oral tablet 1 tab(s), Oral, q6hr, PRN nausea, # 30 tab(s), 0 Refill(s), Start Date: 6:57:00 CDT Start Date: 10/04/14 Stop Date: 07/03/15 Status: DiscontinuedZofran 4 mg oral tablet 1 tab(s), Oral, TID, PRN nausea/vomiting, # 12 tab(s), 0 Refill(s), Start Date: 07/03/15 15:04:00 MANAGEMENT SCIENTIST, Pharmacy: [facility] Start Date: 07/03/15 Stop Date: 01/12/16 Status: Completed Results Patient Viewable Results Most recent to oldest [Reference 1 2 3 Range]: AN - Fi O2 41 % % 41 % % 41 % % (07/15/16 8:45 AM) (07/15/16 8:40 AM) (07/15/16 8:35 AM) Estimated Creatinine Clearance 68.51 mL/min (07/15/16 7:37 AM) Immunizations Vaccine Date Refusal Reason tetanus/diphtheria/pertussis, acel(Tdap) 06/06/10 tetanus/diphtheria/pertussis, acel(Tdap) 10/01/09 Procedures Procedure Date Related Diagnosis Body Site Cataract Extraction With Lens Implant (Right)1 07/15/16 Arthroplasty Shoulder Total (Left)2 10/01/14 Esophageal Dilatation3 09/19/13 Pyloroplasty 01/31/13 Repair of paraesophageal diaphragmatic hernia4 01/31/13 Esophagogastroduodenoscopy 01/30/13 Esophagogastroduodenoscopy 12/22/12 Bilateral tubal ligation 1975 section 1974 section 1973 Repair of paraesophageal diaphragmatic hernia 1auto-populated from documented surgical [id number] from documented surgical [id number] from documented surgical [id number] Social History No data available for this section Assessment and Plan No data available for this section
[2016-08-23] MEDS: TROPICAMIDE 150 DROP BTL LEFTEYE PRN ×3 (08:43→09:11)
[2016-08-23] MEDS: PHENYLEPHRINE HCL 50 DROP BTL LEFTEYE PRN ×3 (08:43→09:11)
[2016-08-23 11:13] VITALS: BP 107/66
== END 2016-08-23 08:05 | disposition home or self-care (01) ==
LOC: AMB 08:04
PROVIDERS: ATTEND Ophthalmology
PROC: 08RK3JZ Replacement of Left Lens with Synthetic Substitute, Percutaneous Approach (ICD-10-PCS; principal; 2016-08-23 09:30)
DX: H26.9 Unspecified cataract (principal); I10 Essential (primary) hypertension; Z87.891 Personal history of nicotine dependence